=== PATIENT | male | born 1995 | race Caucasian/White ===

== ENCOUNTER 2023-05-10 17:01 | Emergency (ER) | payer SELFPAY ==
[2023-05-10 17:14] VITALS: BP 108/75; PULSE 78; RESP 17; TEMP 98.2; BMI 26.6
[2023-05-10] MEDS ORDERED: IBUPROFEN 600 MG TABLET (FP) PO ONE ×2 (19:22→19:24)
[2023-05-10] MEDS ORDERED: ACETAMINOPHEN 500 MG TABLET (FP) PO ONE (19:22)
[2023-05-10] MEDS ORDERED: ACETAMINOPHEN 500 MG TABLET (FP) ONE (19:24)
== END 2023-05-10 19:34 | disposition home or self-care (01) ==
LOC: JER 17:01 → JERFT 17:01
DX: S69.91XA Unspecified injury of right wrist, hand and finger(s), initial encounter (principal); M79.641 Pain in right hand; R22.31 Localized swelling, mass and lump, right upper limb; W19.XXXA Unspecified fall, initial encounter; Y93.66 Activity, soccer
CPT/HCPCS: 73130-TC-RT-FY; 99283-25